=== PATIENT | female | born 1995 | race Caucasian/White ===

== ENCOUNTER 2020-03-15 09:00 | Outpatient (NON) | payer OTHER, SELFPAY ==
[2020-03-15 19:08] LABS: SARS-CoV-2 RNA PCR Negative
== END 2020-03-15 09:01 ==
PROVIDERS: Visit Provider Physician Assistant
DX: R05 Cough (principal); J02.9 Acute pharyngitis, unspecified; Z20.828 Contact with and (suspected) exposure to other viral communicable diseases
CPT/HCPCS: 87635; C9803; U0003

== ENCOUNTER 2020-05-07 06:53 | Outpatient (NON) | payer OTHER, SELFPAY ==
[2020-05-07 18:13] LABS: SARS-CoV-2 RNA PCR Negative
== END 2020-05-07 06:54 ==
PROVIDERS: PCP Family Medicine Adolescent Medicine; Visit Provider Family Medicine Adolescent Medicine
DX: R50.9 Fever, unspecified (principal); R53.83 Other fatigue; R19.7 Diarrhea, unspecified; Z20.828 Contact with and (suspected) exposure to other viral communicable diseases
CPT/HCPCS: 87635; C9803; U0003

== ENCOUNTER 2020-06-06 14:33 | Emergency (ER) | payer OTHER, SELFPAY ==
--- NOTE | 2020-06-06 14:39 | ED.GENADULT ---
HPI - General Adult General Chief complaint: Skin/Abscess/Foreign Body Stated complaint: possible insect bite Time Seen by Provider: 06/06/20 14:39 Source: patient Mode of arrival: ambulatory Limitations: no limitations History of Present Illness HPI narrative: 24-year-old female patient presents to the [facility] with complaints of an insect bite to left buttocks for the past 3 days. Denies any fevers, body aches or chills. Denies any nausea, vomiting or diarrhea. Patient states she has been a little bit of antibiotic ointment on it but denies taking anything for pain. Patient denies any or breast-feeding at this time. Related Data Allergies Allergy/AdvReac Type Severity Reaction Status Date / Time No Known Allergies Allergy Verified 06/06/20 14:51 Review of Systems Review of Systems: Narrative: CONSTITUTIONAL: Denies fever, chills, or sweats. EYES: Denies visual changes, redness, or discharge. ENT: Denies rhinorrhea, congestion, sore throat, or otalgia. CARDIOVASCULAR: Denies chest pain, palpitations, or edema. RESPIRATORY: Denies cough or dyspnea. GASTROINTESTINAL: Denies abdominal pain, nausea, vomiting, or diarrhea. GENITOURINARY: Denies dysuria or hematuria. SKIN: Denies rash or itching. Positive insect bite to left buttocks x3 days MUSCULOSKELETAL: Denies back pain, joint pain, or myalgia. NEUROLOGIC: Denies headache, numbness, or weakness. PSYCHIATRIC: Denies anxiety or depression. PMFSH Social History Social History Gender identity (if verbalized by the patient): Female Comments At the time of my signature I agree with nursing past medical history, surgical, social, and family history. There is no relevant family history pertinent to the presenting complaint. Exam Narrative: Exam Narrative: GENERAL: Well-appearing, well-nourished, and in no acute distress. HEAD: Normocephalic, atraumatic. EYES: PERRLA and EOMI. ENT: Nares clear, no rhinorrhea or epistaxis. Mucous membranes moist. NECK: Supple. No lymphadenopathy CHEST: Clear to auscultation. No respiratory distress. HEART: Regular rate and rhythm. No murmur heard. Normal peripheral pulses. ABDOMEN: Soft, nontender, nondistended, normal active bowel sounds. EXTREMITIES: Normal range of motion. No edema. SKIN: Warm, dry, no rash. Patient has approximately 1 cm x 1 cm round wound that is slightly raised noted to the middle of the left buttocks. There is a punctate brunilda in the middle with some scabbing over the punctate brunilda at this time. No active drainage. Slight tenderness but no warmth present. NEURO: No focal deficits. Alert and oriented x3. Course Vital Signs Vital signs: Vital Signs Temperature 37.3 C 06/06/20 14:44 Pulse Rate 100 06/06/20 14:44 Respiratory Rate 18 06/06/20 14:44 Blood Pressure 139/71 06/06/20 14:44 Pulse Oximetry 100 06/06/20 14:44 Temperature 37.3 C 06/06/20 14:44 Pulse Rate 100 06/06/20 14:44 Respiratory Rate 18 06/06/20 14:44 Blood Pressure 139/71 06/06/20 14:44 Pulse Oximetry 100 06/06/20 14:44 Vital signs reviewed. The patient has been informed that they may have pre-hypertension or Hypertension based on a BP reading in the department. I recommend that the patient call the primary care provider listed on their discharge instructions or a physician of their choice this week to arrange follow up for further evaluation of possible pre-hypertension or Hypertension Medical Decision Making Differential Diagnosis Differential Diagnosis: Differential diagnosis: Abscess, cellulitis, hidradenitis, laceration, puncture wound. Discussed with patient that the wound is small enough that I think we can treat this with topical antibiotic I do not think that she needs an oral antibiotic especially since she is not running any fevers or having any systematic symptoms. Discussed with patient I would encourage her to clean the area and put t
[2020-06-06 14:44] VITALS: BP 139/71; PULSE 100; RESP 18; TEMP 37.3; O2SAT 100
== END 2020-06-06 15:00 | disposition home or self-care (01) ==
PROVIDERS: Emergency Provider Nurse Practitioner Family; PCP Family Medicine Adolescent Medicine
DX: S30.860A Insect bite (nonvenomous) of lower back and pelvis, initial encounter (principal); W57.XXXA Bitten or stung by nonvenomous insect and other nonvenomous arthropods, initial encounter
CPT/HCPCS: 99213; G0463

== ENCOUNTER 2021-07-05 09:20 | Emergency (ER) | payer OTHER, SELFPAY ==
[2021-07-05 09:26] VITALS: BP 118/81; PULSE 79; RESP 16; TEMP 37.2; O2SAT 99
--- NOTE | 2021-07-05 09:34 | ED.URI ---
HPI - URI/Sore Throat General Chief Complaint: Upper Respiratory Infection Stated Complaint: sore throat Time Seen by Provider: 07/05/21 09:30 Source: patient and RN notes reviewed Mode of arrival: ambulatory Limitations: no limitations History of Present Illness HPI Narrative: Ariadna is a 25-year-old female who ambulated into the [facility] today. Patient complains of sore throat headache and fatigue starting on 07/03/2021. Patient states she has a right lymph node in her neck that started swelling on Saturday. Patient has taken Tylenol for sore throat. Patient denies any congestion or ear pain. MD elicited complaint: sore throat Related Data Allergies Allergy/AdvReac Type Severity Reaction Status Date / Time No Known Allergies Allergy Verified 06/06/20 14:51 Review of Systems Review of Systems: CONSTITUTIONAL: Denies body aches, fever, chills, or sweats. EYES: Denies visual changes, redness, or discharge. ENT: Denies rhinorrhea, congestion,+ sore throat, denies otalgia. CARDIOVASCULAR: Denies chest pain, palpitations, or edema. RESPIRATORY: Denies cough or dyspnea. GASTROINTESTINAL: Denies abdominal pain, nausea, vomiting, or diarrhea. GENITOURINARY: Denies dysuria or hematuria. SKIN: Denies rash, itching, or wounds. MUSCULOSKELETAL: Denies back pain, joint pain, or myalgia. NEUROLOGIC:+ headache,denies numbness, tingling, or weakness. PSYCH: Denies depression or anxiety. All systems reviewed & are unremarkable except as noted in HPI and below PMFSH Social History Social History Gender identity (if verbalized by the patient): Female Comments At time of signature, I have reviewed and agree with nursing past medical, surgical, social and family history unless otherwise noted. Please see nursing chart for further information. There is no relevant family history pertinent to the presenting complaint Exam Narrative: GENERAL: Well-appearing, well-nourished, and in no acute distress. HEAD: Normocephalic, atraumatic. EYES: EOMI. No redness or drainage. Conjunctivae normal. ENT: Mucous membranes pink and moist. Nares clear. No rhinorrhea. TMs dull bilaterally;no bulging noted. Posterior pharynx erythemic without exudate, moderate edema noted Uvula midline. NECK: Normal AROM. Supple. Bilateral anterior cervical lymphadenopathy. CHEST: No respiratory distress. Clear to auscultation. MUSCULOSKELETAL: No bony tenderness. EXTREMITIES: Normal range of motion. No edema. SKIN: Warm, dry, no rash. Capillary refill normal. Normal skin turgor. NEURO: No focal deficits. Alert and oriented x3. Gait steady. PSYCH: Normal affect. No signs of depression or anxiety. Course Vital Signs Vital signs: Vital Signs Temperature 37.2 C 07/05/21 09:26 Pulse Rate 79 07/05/21 09:26 Respiratory Rate 16 07/05/21 09:26 Blood Pressure 118/81 07/05/21 09:26 Pulse Oximetry 99 07/05/21 09:26 Temperature 37.2 C 07/05/21 09:26 Pulse Rate 79 07/05/21 09:26 Respiratory Rate 16 07/05/21 09:26 Blood Pressure 118/81 07/05/21 09:26 Pulse Oximetry 99 07/05/21 09:26 Reviewed MDM - URI/Sore Throat Differential Diagnosis Differential diagnosis: Likely upper respiratory infection, otitis media, viral infection and pharyngitis Medical Records Attestation: I reviewed the patient's medical records. Lab Data Attestation: I reviewed the patient's lab results. Critical Care Time Critical Care Time Critical Care Time: No Discharge Plan Discharge Clinical Impression: Pharyngitis Qualifiers: Pharyngitis/tonsillitis etiology: unspecified etiology Qualified Code(s): J02.9 - Acute pharyngitis, unspecified Patient Disposition: Home, Self-Care Condition: Stable Instructions: Antibiotic Form, Pharyngitis (ED) Additional Instructions: Your rapid strep swab was negative today at [facility]. You will be notified in a few days if the culture
== END 2021-07-05 09:59 | disposition home or self-care (01) ==
PROVIDERS: Emergency Provider Nurse Practitioner Family; PCP Family Medicine Adolescent Medicine
DX: J02.9 Acute pharyngitis, unspecified (principal)
CPT/HCPCS: 87081; 87880; 99213; G0463

== ENCOUNTER 2021-11-19 10:51 | Emergency (ER) | payer OTHER, SELFPAY ==
--- NOTE | ~2021-11-19 | CT_ITS ---
EXAMINATION: CT abdomen pelvis w con DATE: 11/19/2021 12:09 INDICATION: Lower abdominal pain for 2 days TECHNIQUE: Computed tomography (CT) of the abdomen and pelvis was performed with 100 cc Omnipaque 350 intravenous contrast. The dose-length product was 187.11 mGy-cm. Automated exposure control and iter ative reconstruction technique were employed. COMPARISON: None. FINDINGS: Lung bases are unremarkable. Heart size normal. No significant vascular abnormality. No lym phadenopathy. There is a 6.4 cm right ovarian cyst. There is a 1.7 cm left ovarian cyst. There is mil d endometrial prominence, likely related to the patient's menstrual cycle. 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 There are small accessory splenules in the left upper abdomen. Fatty infiltration of the liver. The p ancreas, adrenal glands are unremarkable. No hydronephrosis. No significant free fluid. No acute osse ous abnormality. IMPRESSION: 1. Bilateral ovarian cysts, largest in the right ovary measuring 6.4 cm. 2: Horseshoe kidney. Reviewed, dictated and finalized at location A.
[2021-11-19 10:53] VITALS: BP 131/77; PULSE 98; RESP 18; TEMP 37.2; O2SAT 99
--- NOTE | 2021-11-19 10:58 | PC.NURSE ---
pt ambulated to room, given gown to change in to and urine specimen collection cup. Protocol initiated.
[2021-11-19 11:20] LABS: Basophils Percent Auto 0.4 % (0.2-1.2); Eosinophils Percent Auto 0.1 % (0-4.4); Hematocrit 43.8 % (37.0-47.0); Hemoglobin 14.7 g/dL (12.0-15.0); Immature Granulocyte Absolute 0.02 K/mm3 (0.00-0.031); Immature Granulocyte Percent A 0.3 % (0-0.5); Lymphocytes Absolute Auto 1.05 K/mm3 (0.9-3.2); Lymphocytes Percent Auto 13.9 % (18.3-44.2); Mean Corpuscular HGB Conc 33.6 g/dl (32-36); Mean Corpuscular Hemoglobin 32.3 pg (26-34); Mean Corpuscular Volume 96.3 fl (80-100); Mean Platelet Volume 10.1 fl (7.4-10.4); Monocytes Absolute Auto 0.6 K/mm3 (0.1-0.6); Monocytes Percent Auto 7.9 % (2.6-8.5); Neutrophils Absolute Auto 5.9 K/mm3 (1.3-6.7); Neutrophils Percent Auto 77.4 % (45.5-73.1); Platelet Count Result 221 k/mm3 (150-375); Red Blood Count 4.55 M/mm3 (4.2-5.4); Red Cell Distribution Width 11.8 % (11.5-14.5); White Blood Count 7.6 K/mm3 (4.5-10.0)
[2021-11-19 11:25] LABS: Add Urine Microscopic? YES; Appearance Urine Cloudy (Clear); Bacteria Urine Trace /hpf; Bilirubin Urine Negative (Negative); Blood Urine 1+ (Negative); Color Urine Yellow (Yellow); Glucose Urine UA Negative (Negative); Ketones Urine Trace mg/dL (Negative); Leukocyte Esterase Ur Negative LEU/UL (Negative); Mucus Urine Rare /lpf; Nitrate Urine Negative (Negative); Protein Urine Negative (Negative); Specific Grav Ur 1.021 (1.001-1.035); Squamous Epithelial Cell Urine Many /hpf (Few); Urobilinogen Urine Negative mg/dL (<2.0)
[2021-11-19 11:29] LABS: Alanine Aminotransferase 14 U/L (4-35); Albumin Level 4.4 g/dL (3.5-5.1); Alkaline Phosphatase 62 U/L (38-126); Anion Gap 9 mmol/L (8-16); Aspartate Amino Transferase 27 U/L (14-36); Bilirubin,Total 0.4 mg/dL (0.2-1.3); Blood Urea Nitrogen 10 mg/dL (7-17); Calcium 8.4 mg/dL (8.4-10.2); Carbon Dioxide 24 mmol/L (22-30); Chloride 103 mmol/L (98-107); Estimated Glomerular Filt Rate > 60; Glucose 107 mg/dL (65-110); Lipase 33 U/L (23-300); Potassium 4.1 mmol/L (3.4-5.0); Sodium 136 mmol/L (137-145)
--- NOTE | 2021-11-19 11:32 | ED.ABDPAIN ---
HPI - Abdominal Pain General Chief Complaint: Abdominal Pain Stated Complaint: flank pain, fever, chills Time Seen by Provider: 11/19/21 11:23 Source: patient Mode of arrival: ambulatory Limitations: no limitations History of Present Illness HPI narrative: Patient is 26 years old white female presented to the ED with left flank pain radiating to left lower quadrant started 3 days ago. Associated with chills, cold, hot feeling. Patient denies any nausea vomiting diarrhea, also denied any vaginal bleeding or discharge, patient does not take medicine at home, last menstrual cycle 3 weeks ago, patient smokes marijuana, does not drink or smoke cigarettes. Related Data Allergies Allergy/AdvReac Type Severity Reaction Status Date / Time No Known Allergies Allergy Verified 06/06/20 14:51 [facility] Social History Social History Gender identity (if verbalized by the patient): Female Course Course Emergency Course: Patient presents with left flank and left upper quadrant pain, Work-up did not show any significant findings to explain patient condition. CAT scan showed ovarian cyst bilaterally the largest one on the right side. Musculoskeletal pain is a possibility. Patient will be discharged home to follow-up with her family physician and to use anti-inflammatories and Tylenol as needed. Vital Signs Vital signs: Vital Signs Temperature 37.2 C 11/19/21 10:53 Pulse Rate 98 11/19/21 10:53 Respiratory Rate 18 11/19/21 10:53 Blood Pressure 131/77 11/19/21 10:53 Pulse Oximetry 99 11/19/21 10:53 Temperature 37.2 C 11/19/21 10:53 Pulse Rate 98 11/19/21 10:53 Respiratory Rate 18 11/19/21 10:53 Blood Pressure 131/77 11/19/21 10:53 Pulse Oximetry 99 11/19/21 10:53 MDM - Abdominal Pain Lab Data Result diagrams: 11/19/21 11:13 11/19/21 11:13 Labs: Lab Results 11/19/21 11/19/21 11/19/21 Range/Units 11:13 11:13 11:13 WBC 7.6 (4.5-10.0) K/mm3 RBC 4.55 (4.2-5.4) M/mm3 Hgb 14.7 (12.0-15.0) g/dL Hct 43.8 (37.0-47.0) % MCV 96.3 (80-100) fl MCH 32.3 (26-34) pg MCHC 33.6 (32-36) g/dl RDW 11.8 (11.5-14.5) % Plt Count 221 (150-375) k/mm3 MPV 10.1 (7.4-10.4) fl Immature Gran % (Auto) 0.3 (0-0.5) % Neut % (Auto) 77.4 H (45.5-73.1) % Lymph % (Auto) 13.9 L (18.3-44.2) % [place] % (Auto) 7.9 (2.6-8.5) % Eos % (Auto) 0.1 (0-4.4) % Baso % (Auto) 0.4 (0.2-1.2) % Lymph # (Auto) 1.05 (0.9-3.2) K/mm3 [place] # (Auto) 0.6 (0.1-0.6) K/mm3 Eos # (Auto) 0.0 (0-0.3) K/mm3 Baso # (Auto) 0.0 (0.0-0.1) K/mm3 Abs Immat Gran (auto) 0.02 (0.00-0.031) K/mm3 Absolute Neuts (auto) 5.9 (1.3-6.7) K/mm3 Absolute Nucleated RBC 0.0 (0.0-0.012) K/mm3 Nucleated RBC % 0.0 (0.0-0.2) % Sodium 136 L (137-145) mmol/L Potassium 4.1 (3.4-5.0) mmol/L Chloride 103 (98-107) mmol/L Carbon Dioxide 24 (22-30) mmol/L Anion Gap 9 (8-16) mmol/L BUN 10 (7-17) mg/dL Creatinine 0.70 (0.7-1.0) mg/dL Estim Creat Clear Calc Not Reportable Estimated GFR > 60 (59 - ) Glucose 107 (65-110) mg/dL Calcium 8.4 (8.4-10.2) mg/dL Total Bilirubin 0.4 (0.2-1.3) mg/dL AST 27 (14-36) U/L ALT 14 (4-35) U/L Alkaline Phosphatase 62 (38-126) U/L Total Protein 8.0 (6.3-8.2) g/dL Albumin 4.4 (3.5-5.1) g/dL Lipase 33 (23-300) U/L Urine Color Yellow (Yellow) Urine Appearance Cloudy H (Clear) Urine pH 5.0 (5.0-9.0) Ur Specific [place] 1.021 (1.001-1.035) Urine Protein Negative (Negative) mg/dL Urine Glucose (UA) Negative (Negative) mg/dL Urine Ketones Trace (Negative) mg/dL Ur Blood (Man) 1+ H (Negative) Urine Nitrate Negative (Negative) Urine Bilirubin Negative (Negative) Urine Urobilinogen Negative (<2.0) mg/dL Leukocyte Esterase R
[2021-11-19] MEDS: SODIUM CHLORIDE 0.9% IV 1,000 ML 999 ML IV CONT (11:42)
== END 2021-11-19 13:50 | disposition home or self-care (01) ==
PROVIDERS: Emergency Provider Emergency Medicine; PCP Family Medicine Adolescent Medicine
DX: R10.32 Left lower quadrant pain (principal); Q63.1 Lobulated, fused and horseshoe kidney; N83.202 Unspecified ovarian cyst, left side; N83.201 Unspecified ovarian cyst, right side
CPT/HCPCS: 36415; 74177; 80053; 81001; 81025; 83690; 85025; 96360; 99284; J7030; Q9967

== ENCOUNTER 2022-10-06 10:46 | Emergency (ER) | payer OTHER, SELFPAY ==
--- NOTE | 2022-10-06 10:59 | ED.NAVMDI ---
HPI - Nausea/Vomiting/Diarrhea General Chief complaint: Nausea/Vomiting/Diarrhea Stated complaint: Vomiting with Time Seen by Provider: 10/06/22 10:48 History of Present Illness HPI Narrative: 27-year-old G1, P0 female who is currently about 5 weeks by LMP here for evaluation of nausea, vomiting for the past 3 days. Patient states that she has been unable to tolerate any p.o. denies sick contacts, fevers or chills, diarrhea or constipation, new or suspicious foods. No vaginal bleeding, dysuria, urgency or frequency, or abdominal pain. Patient decided to come in today because she started to have some pain in her left flank and thought she might have a kidney infection. Has not attempted any medicine for this pain. Related Data Allergies Allergy/AdvReac Type Severity Reaction Status Date / Time No Known Allergies Allergy Verified 11/21/21 09:26 Review of Systems Review of Systems: Gen: Denies fevers or chills Eyes: Denies eye pain or visual change ENT: Denies congestion Respiratory: Denies shortness of breath or cough CV: Denies chest pain or palpitations GI: Reports nausea and vomiting. denies burning, urgency, frequency or hematuria Musculoskeletal: Reports left flank pain. Denies back pain or muscle pain Neuro: Denies numbness, tingling, weakness or focal weakness Skin: Denies rash Except as documented, all other systems reviewed and negative PMFSH Family History Family History (Updated 11/21/21 @ 09:29 by Gianluca Brandon MA) Grandparent Depression Social History Social History (Updated 11/21/21 @ 09:30 by Gianluca Brandon MA) Smoking status: Current every day smoker Tobacco type: cigarettes Second hand tobacco smoke exposure: Yes Alcohol intake: never Substance use: never Substance use type: does not use Living arrangements: with family Occupation/Education: occupation Gender identity (if verbalized by the patient): Female Sexual Orientation (if Verbalized by the Patient): Straight or Heterosexual Spiritual care concerns: No Agree to blood products: Yes Exam Narrative: APPEARANCE: Well appearing, no pain in distress, well-nourished. Head: Normocephalic and atraumatic. EYES: PERRLA/EOMI, conjunctivae clear NOSE: No nasal drainage EARS: External ear normal in appearance THROAT: Oropharynx is clear. Mucous membranes are moist. NECK: Supple. No adenopathy, no masses. RESPIRATORY: Airway patent, respirations nonlabored. Clear to auscultation bilaterally, no rales, rhonchi, wheezing. CARDIOVASCULAR: Regular rate and rhythm without murmurs, rubs, or gallops. ABDOMINAL: Normoactive bowel sounds. Soft, nontender, nondistended. No rebound tenderness or guarding. MUSCULOSKELETAL: No CVAT. Extremities are warm and well-perfused. Moves all extremities well. No edema. NEURO: Normal speech. No focal neurologic deficits. SKIN: Skin is warm and dry. No rashes. PSYCHIATRIC: Normal affect/mood. Course Vital Signs Vital signs: Vital Signs Temperature 98.2 F 10/06/22 11:11 Pulse Rate 106 H 10/06/22 11:11 Respiratory Rate 16 10/06/22 11:11 Blood Pressure 114/81 10/06/22 11:11 Pulse Oximetry 100 10/06/22 11:11 Oxygen Delivery Room Air 10/06/22 11:11 Temperature 98.2 F 10/06/22 11:11 Pulse Rate 80 10/06/22 12:26 Respiratory Rate 16 10/06/22 12:26 Blood Pressure 124/68 10/06/22 12:26 Pulse Oximetry 99 10/06/22 12:26 Oxygen Delivery Room Air 10/06/22 11:11 MDM - Nausea/Vomiting/Diarrhea MDM Narrative Medical decision making narrative: 27-year-old female who is currently about 5 weeks here for evaluation of nausea and vomiting over the past several days, unable to tolerate any p.o, now having some pain in her left flank. Patient is nontoxic in appearance and has normal vital signs. No urinary symptoms, fever or CVA tenderness to suggest ascending infection. She was given fluids, Reglan and Pepcid with improvement
[2022-10-06 11:11] VITALS: BP 114/81; PULSE 106; RESP 16; TEMP 36.8; O2SAT 100
[2022-10-06 11:15] LABS: Appearance Urine Cloudy (Clear); Bilirubin Urine 1+ (Negative); Blood Urine Negative (Negative); Color Urine Yellow (Yellow); Glucose Urine UA Negative (Negative); Ketones Urine 3+ mg/dL (Negative); Leukocyte Esterase Ur Negative LEU/UL (Negative); Nitrate Urine Negative (Negative); Protein Urine 1+ mg/dL (Negative); Urobilinogen Urine 0.2 mg/dL (<2.0); pH Urine 8.5 (5.0-9.0)
[2022-10-06 11:22] LABS: Amorphous Sediment Urine Moderate; Mucus Urine Heavy /lpf; Squamous Epithelial Cell Urine Many /hpf (Few); WBC Urine 0-3 /hpf
[2022-10-06 11:24] LABS: Add Urine Microscopic? YES
[2022-10-06 11:28] LABS: Basophils Percent Auto 0.4 % (0.2-1.2); Eosinophils Percent Auto 0.2 % (0-4.4); Hematocrit 41.5 % (37.0-47.0); Hemoglobin 14.4 g/dL (12.0-15.0); Immature Granulocyte Absolute 0.02 K/mm3 (0.00-0.031); Immature Granulocyte Percent A 0.2 % (0-0.5); Lymphocytes Percent Auto 17.6 % (18.3-44.2); Mean Corpuscular HGB Conc 34.7 g/dl (32-36); Mean Corpuscular Hemoglobin 31.9 pg (26-34); Mean Platelet Volume 10.2 fl (7.4-10.4); Monocytes Absolute Auto 0.5 K/mm3 (0.1-0.6); Monocytes Percent Auto 5.6 % (2.6-8.5); Neutrophils Absolute Auto 6.5 K/mm3 (1.3-6.7); Platelet Count Result 261 k/mm3 (150-375); Red Blood Count 4.51 M/mm3 (4.2-5.4); Red Cell Distribution Width 11.9 % (11.5-14.5); White Blood Count 8.5 K/mm3 (4.5-10.0)
[2022-10-06 11:37] LABS: Alanine Aminotransferase 29 U/L (6-35); Albumin Level 4.9 g/dL (3.5-5.1); Alkaline Phosphatase 56 U/L (38-126); Anion Gap 6 mmol/L (8-16); Aspartate Amino Transferase 30 U/L (14-36); Bilirubin,Total 0.8 mg/dL (0.2-1.3); Blood Urea Nitrogen 9 mg/dL (7-17); Calcium 9.3 mg/dL (8.4-10.2); Carbon Dioxide 26 mmol/L (22-30); Chloride 101 mmol/L (98-107); Estimated Glomerular Filt Rate > 60; Glucose 122 mg/dL (65-110); Lipase 51 U/L (23-300); Potassium 3.7 mmol/L (3.4-5.0); Sodium 133 mmol/L (137-145)
[2022-10-06] MEDS: LACTATED RINGERS 1,000 ML 999 ML IV CONT (11:42)
[2022-10-06] MEDS: METOCLOPRAMIDE HCL INJ 10 MG/2 ML VIAL IV PUSH (11:43)
[2022-10-06] MEDS: FAMOTIDINE 20 MG/2 ML VIAL IV PUSH (11:43)
[2022-10-06 12:26] VITALS: BP 124/68; PULSE 80; RESP 16; O2SAT 99
== END 2022-10-06 12:27 | disposition home or self-care (01) ==
PROVIDERS: Emergency Provider Physician Assistant; PCP Family Medicine Adolescent Medicine
DX: O26.891 Other specified pregnancy related conditions, first trimester (principal); R11.2 Nausea with vomiting, unspecified; F17.210 Nicotine dependence, cigarettes, uncomplicated; Z3A.01 Less than 8 weeks gestation of pregnancy
CPT/HCPCS: 36415; 80053; 81001; 83690; 84702; 85025; 96361; 96374; 96375; 99284; J2765; J7120

== ENCOUNTER 2022-10-26 14:41 | Outpatient (CLI) | payer OTHER, SELFPAY ==
--- NOTE | ~2022-10-26 | US_ITS ---
EXAMINATION: US OB <= 14 weeks fetus DATE: 10/26/2022 14:59 INDICATION: . Inconclusive viability. TECHNIQUE: Real-time transabdominal obstetric ultrasound. FINDINGS: No prior studies for comparison. The uterus measures 10.9 x 5.7 x 8 cm. There is an intrauterine gestational sac, with pole iden tified. The crown rump length measures 2.36 cm, which correlates with a estimated gestational age of 9 weeks 0 days. heart tones are identified measuring 182 bpm. The right ovary is surgically absent. The left ovary is unremarkable measuring 3.1 x 2.8 x 3 cm. IMPRESSION: 1. SL IUP with an EGA of 9 weeks, 0 days (EDC by current ultrasound of 05/31/2023). Reviewed, dictated and finalized at location B. CHARGER IMPRESSION: 1. SL IUP with an EGA of 9 weeks, 0 days (EDC by current ultrasound of 3).
== END 2022-10-26 14:42 ==
PROVIDERS: PCP Advanced Practice Midwife; Visit Provider Advanced Practice Midwife
DX: O36.80X0 Pregnancy with inconclusive fetal viability, not applicable or unspecified (principal); Z3A.09 9 weeks gestation of pregnancy
CPT/HCPCS: 76801

== ENCOUNTER 2022-12-31 13:47 | Outpatient (CLI) | payer OTHER, SELFPAY ==
--- NOTE | ~2022-12-31 | US_ITS ---
EXAMINATION: US OB /maternal detail DATE: 12/31/2022 14:17 INDICATION: anatomic survey. TECHNIQUE: Real-time ultrasound of the pelvis was performed. COMPARISON: Ultrasound 10/26/2022 FINDINGS: There is a single living fetus in breech presentation. The placenta is posterior, 4.9 cm from the ce rvix. The cervical length is 3.2 cm on transabdominal images, which is normal. heart rate is 14 8 beats per minute (bpm). The amniotic fluid volume is subjectively normal. The following biometric data were obtained: Biparietal diameter (BPD): 4.5 cm; head circumference (HC): 16.2 cm; abdominal circumference (AC): 13 .1 cm; femur length (FL): 2.9 cm. These measurements are concordant. Estimated weight is 256 g +/- 38 g, which correlates with the 67th percentile when 05/31/23 is u sed as estimated date of delivery. As single measurements, these parameters are each equal to the following estimated gestational ages: BPD: 19 weeks 4 days. HC: 19 weeks 0 days. AC: 18 weeks 4 days. FL: 18 weeks 6 days. estimated gestational age based solely on measurements from this exam is 19 weeks 0 days +/- 1 weeks 2 days. The cerebral ventricles, cerebellum, cisterna magna, nuchal fold, lip, and visualized portions of the spine are normal. The heart is normal. The diaphragm, stomach, kidneys, and bladder are normal. Ther e are two umbilical arteries to yield a 3-vessel cord. The cord insertion is normal. IMPRESSION: 1. Single living fetus in breech presentation. 2. Estimated weight is 256 g +/- 38 g, which correlates with the 67th percentile when 05/31/23 is used as estimated date of delivery. 3. Normal anatomic survey. Reviewed, dictated and finalized at location A. IMPRESSION: 1. Single living fetus in breech presentation. 2. Estimated weight is 256 g +/- 38 g, which correlates with the 67th pe rcentile when 05/31/23 is used as estimated date of delivery. 3. Normal anatomic survey.
== END 2022-12-31 13:48 ==
PROVIDERS: PCP Advanced Practice Midwife; Visit Provider Advanced Practice Midwife
DX: Z36.9 Encounter for antenatal screening, unspecified (principal)
CPT/HCPCS: 76805

== ENCOUNTER 2023-04-10 12:46 | Outpatient (CLI) | payer OTHER, SELFPAY ==
--- NOTE | ~2023-04-10 | US_ITS ---
EXAMINATION: US OB follow up DATE: 04/10/2023 13:10 INDICATION: Estimated size greater than expected for estimated gestational age. TECHNIQUE: Real-time ultrasound of the pelvis was performed. The interpreting radiologist was not pre sent for the study. COMPARISON: 12/31/2022 FINDINGS: There is a single living fetus in vertex presentation. The placenta is posterior and not low-lying. The cervical length measures approximately 2.6 cm however evaluation is limited by transabdominal danis ging and shadowing in the region of the internal cervical loss resulting from the skull. heart rate is 148 beats per minute (bpm). The amniotic fluid index is 12.9 cm, which is normal (5th% -95%: 8.6-24.5 cm at 32 weeks estimated gestational age). The following biometric data were obtained: BPD: 8.2 cm -> 32 weeks 5 days Head circumference: 19.8 cm -> 33 weeks 0 days Abdominal circumference: 28.4 cm -> 32 weeks 3 days Femur length: 6.4 cm -> 32 weeks 6 days These measurements are concordant. Head circumference to abdominal circumference ratio: 1.05 (normal range 0.96-1.12). Estimated weight: 2020 g (+/-) 303 g or 4 lbs. 7 oz. (+/-) 11 oz. IMPRESSION: 1. Single living fetus in vertex presentation with heart rate of 148 bpm. 2. Normal amniotic fluid index of 12.9 cm. 3. Estimated weight is 38th percentile by Hadlock criteria when 05/31/2023 is used as the estima petrona date of delivery ([place]). Please correlate with clinical information or earlier ultrasounds for mos t accurate [place]. 4. Cervical length measured at 2.6 cm which is below normal however assessment is limited by poor vis ualization of the cervix particularly in the region of the internal cervical os due to transabdominal imaging and shadowing from the skull. Could consider repeat imaging with transvaginal probe as clinically indicated. Reviewed, dictated and finalized at location B. IMPRESSION: 1. Single living fetus in vertex presentation with heart rate of 148 bpm. 2. Normal amniotic fluid index of 12.9 cm. 3. Estimated weight is 38th percentile by Hadlock criteria when 05/31/2023 is used as the estimated date of delivery ([place]). Please correlate with clinica l information or earlier ultrasounds for most accurate [place]. 4. Cervical length measured at 2.6 cm which is below normal however assessment is limited by poor visualization of the cervix particularly in the region of th e internal cervical os due to transabdominal imaging and shadowing from the fet al skull. Could consider repeat imaging with transvaginal probe as clinically i ndicated.
== END 2023-04-10 12:47 ==
LOC: MICIMG 12:47
PROVIDERS: PCP Advanced Practice Midwife; Visit Provider Advanced Practice Midwife
DX: O36.63X0 Maternal care for excessive fetal growth, third trimester, not applicable or unspecified (principal); Z3A.00 Weeks of gestation of pregnancy not specified
CPT/HCPCS: 76816

== ENCOUNTER 2023-05-14 12:46 | Outpatient (CLI) | payer OTHER, SELFPAY ==
--- NOTE | ~2023-05-14 | US_ITS ---
EXAMINATION: US OB follow up DATE: 05/14/2023 13:12 INDICATION: Size greater than dates. TECHNIQUE: Real-time transabdominal obstetric ultrasound. FINDINGS: Comparison to multiple prior studies sequentially, with oldest reviewed study dated 023. There is a single living fetus in vertex presentation. The placenta is posterior/fundal without plac enta previa. Cervical length is 2.4 cm. cardiac activity and movement is noted with a heart rate of 158 beats per minute. T he amniotic fluid volume is normal. SY measures 14.8 cm. The following biometric data were obtained: BPD: 89mm corresponds to gestational age 35 weeks 6 days. Head circumference: 322mm corresponds to gestational age 36 weeks 2 days. Abdominal circumference: 328mm corresponds to gestational age 36 weeks 5 days. Femur length: 72mm corresponds to gestational age 36 weeks 5 days. Estimated weight: 2979grams +/- 447grams 33.6%.] IMPRESSION: 1. Single living intrauterine in vertex presentation with an estimated gestational age of 37 weeks 4 days by inititial ultrasound. Appropriate interval growth. 2. Normal placenta. Reviewed, dictated and finalized at location L. IMPRESSION: 1. Single living intrauterine in vertex presentation with an estimat ed gestational age of 37 weeks 4 days by inititial ultrasound. Appropriate int erval growth. 2. Normal placenta.
== END 2023-05-14 12:47 ==
LOC: MICIMG 12:48
PROVIDERS: PCP Advanced Practice Midwife; Visit Provider Advanced Practice Midwife
DX: O36.63X0 Maternal care for excessive fetal growth, third trimester, not applicable or unspecified (principal); Z3A.37 37 weeks gestation of pregnancy
CPT/HCPCS: 76816

== ENCOUNTER 2023-05-30 01:00 | Inpatient (IN) | payer OTHER, SELFPAY ==
[2023-05-30] VITALS (211 sets, daily range): BP systolic 78–156; BP diastolic 36–117; PULSE 77–179; RESP 18; TEMP 36.4–38.1; O2SAT 83–100; BMI 36.0
--- NOTE | 2023-05-30 02:03 | LDADM ---
This patient, Ariadna Harrington, was admitted to Labor/Delivery/Recovery 107 on 05/30/23 at 01:00. Plans for labor, pain management and were discussed with patient. Patient/family oriented to hospital policies and general routines including ID bracelet, bed and alarms, visiting hours, pain management, procedures, bathroom and other care routines, personal items, smoking policy, room service/diet and guest tray routines, infant security routines, and visiting hours. Patient/Family are encouraged to report perceived risks to care and to ask questions if they do not understand what they are told or what they should do. See [facility] for further documentation.
[2023-05-30 02:15] LABS: Basophils Percent Auto 0.2 % (0.2-1.2); Eosinophils Absolute Auto 0.1 K/mm3 (0-0.3); Eosinophils Percent Auto 0.9 % (0-4.4); Hematocrit 32.7 % (37.0-47.0); Hemoglobin 10.9 g/dL (12.0-15.0); Immature Granulocyte Absolute 0.07 K/mm3 (0.00-0.031); Immature Granulocyte Percent A 0.8 % (0-0.5); Lymphocytes Absolute Auto 2.12 K/mm3 (0.9-3.2); Lymphocytes Percent Auto 24.5 % (18.3-44.2); Mean Corpuscular HGB Conc 33.3 g/dl (32-36); Mean Corpuscular Hemoglobin 31.2 pg (26-34); Mean Corpuscular Volume 93.7 fl (80-100); Monocytes Absolute Auto 0.5 K/mm3 (0.1-0.6); Monocytes Percent Auto 5.8 % (2.6-8.5); Neutrophils Absolute Auto 5.9 K/mm3 (1.3-6.7); Neutrophils Percent Auto 67.8 % (45.5-73.1); Platelet Count Result 164 k/mm3 (150-375); Red Blood Count 3.49 M/mm3 (4.2-5.4); Red Cell Distribution Width 14.2 % (11.5-14.5); White Blood Count 8.7 K/mm3 (4.5-10.0)
[2023-05-30] MEDS: LACTATED RINGERS 1,000 ML 125 ML IV CONT ×2 (04:36→13:16)
[2023-05-30] MEDS: OXYTOCIN 30 UNITS/NS 500 ML 30 UNITS/500 ML BAG IV CONT (04:36)
--- NOTE | 2023-05-30 05:53 | WPDANESEPP ---
Anes - Eval Pre Procedure Procedure: Labor epidural Date/Time: 05/30/23 05:53 Pre Op Diagnosis: Leaking Patient Data Age: 27 Gender: F Height: 1.5 m Weight: 81 kg Last Vital Signs Pulse 96 05/30/23 05:31 BP 131/77 05/30/23 05:31 Allergies Allergy/AdvReac Type Severity Reaction Status Date / Time No Known Allergies Allergy Verified 11/21/21 09:26 Home Medications Medication Instructions Recorded Confirmed Type ergocalciferol (vitamin D2) 1,250 1,250 mcg PO WEEKLY 05/03/23 05/03/23 History mcg (50,000 unit) capsule (Vitamin D2) prenat.vits,demario,[id number] 1 tablet PO DAILY 05/03/23 05/03/23 History Laboratory Tests 05/30/23 01:58 WBC 8.7 K/mm3 (4.5-10.0) RBC 3.49 L M/mm3 (4.2-5.4) Hgb 10.9 L D g/dL (12.0-15.0) Hct 32.7 L % (37.0-47.0) MCV 93.7 fl (80-100) MCH 31.2 pg (26-34) MCHC 33.3 g/dl (32-36) RDW 14.2 % (11.5-14.5) Plt Count 164 k/mm3 (150-375) MPV 12.0 H fl (7.4-10.4) Immature Gran % (Auto) 0.8 H % (0-0.5) Neut % (Auto) 67.8 % (45.5-73.1) Lymph % (Auto) 24.5 % (18.3-44.2) [place] % (Auto) 5.8 % (2.6-8.5) Eos % (Auto) 0.9 % (0-4.4) Baso % (Auto) 0.2 % (0.2-1.2) Lymph # (Auto) 2.12 K/mm3 (0.9-3.2) [place] # (Auto) 0.5 K/mm3 (0.1-0.6) Eos # (Auto) 0.1 K/mm3 (0-0.3) Baso # (Auto) 0.0 K/mm3 (0.0-0.1) Abs Immat Gran (auto) 0.07 H K/mm3 (0.00-0.031) Absolute Neuts (auto) 5.9 K/mm3 (1.3-6.7) Absolute Nucleated RBC 0.0 K/mm3 (0.0-0.012) Nucleated RBC % 0.0 % (0.0-0.2) % Immature Plt Fraction 12.0 H % (0.9-11.2) RPR Pending Blood Type O Positive Antibody Screen Negative Patient hx anesthesia problems: none Family hx anesthesia problems: none Results Review: All pre-operative results and documents have been reviewed as part of the pre-operative evaluation. [facility] Past Medical History Medical History (Updated 05/30/23 @ 05:54 by Magy Salgado CRNA) Anxiety Family History Family History Grandparent Depression Social History Social History Smoking status: Never smoker Tobacco type: cigarettes Second hand tobacco smoke exposure: Yes Alcohol intake: never Substance use: former Substance use type: does not use Lack of Transportation: No Lack of Food: Never True Current Housing: I Have Housing Concerned About Future Housing: No Difficulty Paying Gas/Electric Bills: No Difficulty Paying for Meds: No Currently Unemployed: No Education: High School Diploma/GED Difficulty w/ Childcare or Family Care: No Living arrangements: with family Occupation/Education: occupation Gender identity (if verbalized by the patient): Female Sexual Orientation (if Verbalized by the Patient): Straight or Heterosexual Spiritual care concerns: No Agree to blood products: Yes Exam Day of Procedure 05/30/23 05:53 Patient weight: obese Heart: regular rate and rhythm Lungs: normal air movement Airway: Mallampati scale Neurological: alert and oriented
--- NOTE | 2023-05-30 08:15 | WPDOBADMIT ---
Obstetrics - Admit Note Admission Note: record reviewed. No pertinent additions to the history and/or any subsequent changes in the physical findings that are not consistent with the expected course of the were found. Additions to the history and/or subsequent changes in the physical findings follow. Patient admitted with spontaneous rupture of membranes with minimal contractions. Pitocin started and patient now receiving epidural. Last cervical check was 3 and per the RN she was 2cm. She plans to do a cervical check after the patient was comfortable with her epidural. heart tones were category 1.
--- NOTE | 2023-05-30 13:14 | WPDOBADMIT ---
Obstetrics - Admit Note Admission Note: record reviewed. No pertinent additions to the history and/or any subsequent changes in the physical findings that are not consistent with the expected course of the were found. Additions to the history and/or subsequent changes in the physical findings follow. Pt admitted to labor and delivery due to SROM at 0030 this am.
--- NOTE | 2023-05-30 13:14 | PM.OBPNLAB ---
Pain Control Date/time seen: 05/30/23 13:05 Pain control: tolerating well and epidural Pelvic Exam Dilation (cm): 10 Effacement (%): 100 station: +1 Amniotic membrane status: Ruptured Contractions Monitor mode: External Contraction frequency: 3 (1.5-3) Contraction duration: 60 Contraction pattern: Regular Contraction phase: Resting Status status: Category ll Comments: Reassured by moderate variability. Assessment and Plan Comments: Discussed cervical exam. Pt with temp of 100.6F. Plan for Ampicillin, Gentamicin, and Tylenol. Will begin pushing. Dr. Mcbride updated.
[2023-05-30] MEDS: ACETAMINOPHEN 500 MG TABLET 1000 MG PO (13:15)
[2023-05-30] MEDS: AMPICILLIN 2 GM/NS 100 ML 2 GM/100 ML BAG IVPB (13:17)
--- NOTE | 2023-05-30 13:18 | PM.OBPRVD ---
OB - Delivery Note Procedure Delivery date: 05/30/23 Intrapartal Events: Chorioamnionitis Delivery augmentation: Rupture of Membranes Delivery monitor: External FHT and External Uterine Anesthesia type: Epidural [place] Baby Weeks of gestation at delivery: 39 presentation: vertex
--- NOTE | 2023-05-30 13:19 | P.DS_ITS ---
DS: Admitting Diagnosis Admitting Diagnosis 27 y.o. at 39 weeks 4 days SROM at term O+/RI/NR/Hep B neg/HCV neg/HIV neg/GBS neg Hx Anxiety Hx R oophorectomy 2021 DS: Discharge Diagnosis Discharge Diagnosis (1) Mother currently breast-feeding: Code(s): Z39.1 - Encounter for care and examination of lactating mother Status: Acute OB - DS: Summary OB Procedures : Ultrasound Status at Discharge Functional status at discharge: independent ambulation Overall status at discharge: patient is progressing back to baseline Time Spent with Patient Time attestation: Total time spent providing and/or coordinating discharge services: DS: Data Data Completed and Pending Labs on day of discharge: Labs from last 24 hours 05/30/23 01:58 WBC 8.7 RBC 3.49 L Hgb 10.9 L D Hct 32.7 L MCV 93.7 MCH 31.2 MCHC 33.3 RDW 14.2 Plt Count 164 MPV 12.0 H Immature Gran % (Auto) 0.8 H Neut % (Auto) 67.8 Lymph % (Auto) 24.5 [place] % (Auto) 5.8 Eos % (Auto) 0.9 Baso % (Auto) 0.2 Lymph # (Auto) 2.12 [place] # (Auto) 0.5 Eos # (Auto) 0.1 Baso # (Auto) 0.0 Abs Immat Gran (auto) 0.07 H Absolute Neuts (auto) 5.9 Absolute Nucleated RBC 0.0 Nucleated RBC % 0.0 % Immature Plt Fraction 12.0 H RPR Pending Blood Type O Positive Antibody Screen Negative Discharge Plan Discharge Attending physician on discharge: Heather Mcbride Discharging Clinician: Eloisa Michael Patient Disposition: Home, Self-Care Activity: may shower Diet: as tolerated Wound Care Instructions: follow printed instructions Discharge Instructions: Continue taking your vitamin and any other supplements as previously directed (Examples: Iron, Vitamin D). You may take Tylenol 1000mg over the counter every 6 hours as needed for pain. Do not exceed 4000mg of Tylenol daily. You may continue using tucks pads and dermoplast spray if needed for a few more days. Patient Instructions: Antibiotic Form Stand Alone Forms: General Discharge Information Follow-up/Referrals: Eloisa Michael, KAT[facility] [Primary Care Provider] - (6 week exam) Discharge Medications: No Action ergocalciferol (vitamin D2) [Vitamin D2] 1,250 mcg (50,000 unit) Capsule 1,250 mcg PO WEEKLY #2 Tablet 1 tablet PO DAILY Date of admission: 05/30/23 01:00 Primary Care Provider: Eloisa Michael Admitting Provider: Heather Mcbride Attending physician on admission: Heather Mcbride Condition: Stable
[2023-05-30] MEDS: GENTAMICIN SULFATE INJ 405 MG in DEXTROSE 5% 100 ML 100 MG IVPB (13:42)
--- NOTE | 2023-05-30 16:05 | PM.OBPNLAB ---
Pain Control Date/time seen: 05/30/23 16:05 Pain control: epidural Pelvic Exam Dilation (cm): 10 Effacement (%): 100 station: +2 Amniotic membrane status: Ruptured Contractions Monitor mode: External Contraction frequency: 2 (1.5-3) Contraction pattern: Regular Contraction phase: Resting Status status: Category ll Assessment and Plan Comments: CNM at bedside for aprox 3 hours. Pt pushing with contractions. Very good maternal effort. Some capput present. Assisted pt into multiple positions during that time for pushing. FHTs overall cat 2 with some variable decelerations. Reassured by moderate variability. Antibiotics infused for chorioamnionitis. Dr. Mcbride updated on pt progress. Care relinquished to MD at this time.
--- NOTE | 2023-05-30 16:59 | PM.OBPRVD ---
OB - Delivery Note Procedure Delivery date: 05/30/23 Procedure: Induction method: Per Pitocin Protocol Delivery monitor: External FHT and External Uterine Route of delivery: Episiotomy description: None Laceration Description: Perineal - 2nd Degree Delivery repair: vicryl (3-0) Specimen: No Quantitative Blood Loss (ml): 250 Anesthesia type: Local (for repair) Disposition: Floor Baby Date of : 05/30/23 Weeks of gestation at delivery: 39 gender: Female presentation: vertex position: Right Occiput Anterior Placenta delivery description: Spontaneous Cord Vessel Description: 3 Vessels, Nuchal Cord (x 1 delivered through) and Delayed Cord Clamping score one minute: 8 score five minutes: 9
--- NOTE | 2023-05-30 17:01 | PM.OBDSVD ---
DS: Admitting Diagnosis Discharge Date 06/01/23 Admitting Diagnosis IUP 39 4/7 wks SROM DS: Discharge Diagnosis Discharge Diagnosis (1) (normal spontaneous vaginal delivery): Code(s): O80 - Encounter for full-term uncomplicated delivery Status: Acute OB - DS: Summary OB Procedures : Ultrasound OB Procedures Intrapartum: Spontaneous Vag Delivery OB Procedures: : None Peripartum Data Delivery Method: Natural Vaginal Laceration Description: Perineal - 2nd Degree complications: none Status at Discharge Functional status at discharge: independent ambulation Overall status at discharge: patient is progressing back to baseline Time Spent with Patient Time attestation: Total time spent providing and/or coordinating discharge services: DS: Data Data Completed and Pending Labs on day of discharge: Labs from last 24 hours 05/30/23 01:58 WBC 8.7 RBC 3.49 L Hgb 10.9 L D Hct 32.7 L MCV 93.7 MCH 31.2 MCHC 33.3 RDW 14.2 Plt Count 164 MPV 12.0 H Immature Gran % (Auto) 0.8 H Neut % (Auto) 67.8 Lymph % (Auto) 24.5 [place] % (Auto) 5.8 Eos % (Auto) 0.9 Baso % (Auto) 0.2 Lymph # (Auto) 2.12 [place] # (Auto) 0.5 Eos # (Auto) 0.1 Baso # (Auto) 0.0 Abs Immat Gran (auto) 0.07 H Absolute Neuts (auto) 5.9 Absolute Nucleated RBC 0.0 Nucleated RBC % 0.0 % Immature Plt Fraction 12.0 H RPR Pending Blood Type O Positive Antibody Screen Negative Discharge Plan Discharge Attending physician on discharge: Heather Mcbride Discharging Clinician: Delio Musa Anticipated Discharge Date/Time: 06/01/23 17:02 Patient Disposition: Home, Self-Care Activity: may shower Diet: regular Wound Care Instructions: follow printed instructions Discharge Instructions: Education: Mom and Baby Guide Given to: Mother Follow-Up: Call your delivering provider's office for an appointment to be seen in: 6 Weeks Mom and baby should come to the [facility] for the follow-up appointment. Appointment Date/Time: June 03, 2023 at 3:30 pm What to expect at your follow-up visit: Blood Pressure Check Physical Assessment Call [phone] if you are unable to keep your appointment time. BREAST CARE: * Wear a snug supportive bra. * For engorgement discomfort: Breast Feeding: * Apply warm moist washcloths * Express milk as needed to relieve engorgement * Wear loose clothing Bottle Feeding: * May apply ice packs * For sore nipples: * Identify correct latch-on * Apply warm moist washcloths before and after nursing * Air dry nipples after nursing * May apply Lansinoh cream to nipples EPISIOTOMY/PERINEAL CARE: * Until bleeding stops, use your delmer bottle after urinating * Change your pad frequently throughout the day * You may take sitz baths several times a day (fill your bathtub with warm water and soak for 20 minutes.) Do NOT bathe in the water * No tub baths until seen by your physician - You may shower ACTIVITY: * Rest as much as possible. * Do not exercise or lift anything heavier than your baby (such as laundry or other children.) * Avoid stairs or driving as much as possible. * Do not put anything into the vagina. No douching, tampons, or sexual activity until seen by physician. NOTIFY PHYSICIAN IF YOU HAVE ANY QUESTIONS OR IF ANY OF THE FOLLOWING SYMPTOMS OCCUR: * If your vaginal area becomes red, swollen, or more painful than what you have experienced in the hospital. * If your vaginal bleeding becomes foul smelling. * If your vaginal bleeding becomes more heavy than a period or if your bleeding changes from brownish-red/ period color it is now to bright red. However, you may pass an occasional walnut-sized clot once or twice for the first week . * If you experience a sharp, shooting pain in your calves. * If
[2023-05-30] MEDS: OXYTOCIN 30 UNITS/NS 500 ML 30 UNITS/500 ML BAG 125 UNITS IV CONT (17:19)
[2023-05-31 04:15] VITALS: BP 121/76; PULSE 114; RESP 18; TEMP 36.9; O2SAT 100
[2023-05-31 05:14] LABS: Hematocrit 30.7 % (37.0-47.0); Hemoglobin 10.2 g/dL (12.0-15.0)
--- NOTE | 2023-05-31 07:26 | WPDANLDPN2 ---
Anes-Prog Note L&D Date/Time: 05/31/23 07:26 Comfortable throughout: labor and delivery Neuraxial method: epidural Epidural/Spinal procedure site: clean & non-tender Neuro status: Neuro function grossly intact. Cardiovascular status: normal Respiratory status: normal Airway patency: baseline Mental status: baseline Post-Op hydration status: normal Vital Signs: Last Vital Signs Temp 36.9 C 05/31/23 04:15 Pulse 114 H 05/31/23 04:15 Resp 18 05/31/23 04:15 BP 121/76 05/31/23 04:15 Pulse Ox 100 05/31/23 04:15 O2 Del Method Room Air 05/30/23 20:01 Pain score (VAS): 1/10 I/O: Intake & Output 05/30/23 05/30/23 05/31/23 15:59 23:59 07:59 Intake Total 1000 Output Total 10 Balance 1000 -10 Post-procedural complaints: none Patient feedback: Patient satisfied with anesthetic care.
[2023-05-31 07:50] VITALS: BP 110/66; PULSE 100; RESP 18; TEMP 37.2; O2SAT 99
--- NOTE | 2023-05-31 08:05 | P.PNOB_ITS ---
OB - PN: Subj Subjective Date/time seen: 05/31/23 0740 Interval history: Doing well. Urinating without difficulty. Denies passing any large clots. Denies dizziness with ambulating. Tolerating po food and fluids. Bonding with infant. Partner present and supportive. having difficulty latching with nursing. Patient comments: no complaints and pain well controlled [place] baby status: nursing well feeding status: exclusively breast feeding OB - PN: Obj Data Labs 05/31/23 04:15 Labs: Laboratory Results - last 24 hr 05/31/23 04:15 Hgb 10.2 L Hct 30.7 L OB - PN A/P Assessment and Plan (1) (normal spontaneous vaginal delivery): Code(s): O80 - Encounter for full-term uncomplicated delivery Status: Acute (2) Mother currently breast-feeding: Code(s): Z39.1 - Encounter for care and examination of lactating mother Status: Acute (3) Anxiety: Code(s): F41.9 - Anxiety disorder, unspecified Status: Acute Plan day: 1 Plan: routine care Time Spent With Patient Time: Total time spent is greater than 50% in coordination of care (as documented) at patient's floor/unit and/or counseling patient: Review of Systems Review of Systems: All systems reviewed & are unremarkable except as noted in HPI and below Exam 2 Narrative: Alert and oriented. Mood is pleasant and cooperative. Perineum with minimal edema. Fundus firm and below umbilicus. Const: General: cooperative, healthy appearing, no acute distress and alert Orientation/consciousness: patient oriented x3 Limitations: no limitations Resp: Effort & Inspection: normal respiratory effort and able to speak in complete sentences Auscultation: clear to auscultation bilaterally Cardio: Rate: regular rate GI: Inspection: normal to inspection Auscultation: normal bowel sounds : General: Yes bladder normal to palpation Speculum Exam - Vagina: vaginal bleeding Bimanual exam- vagina & uterus: bladder normal to palpation OB/external & speculum: vaginal bleeding Other: Fundus firm and below U Skin: General skin exam: normal color and no rashes or lesions noted Neuro: General: patient oriented x3 and moves all extremities Cognition (Neuro): normal cognition Extrem: General: normal to inspection and no calf tenderness Psych: Appearance: grossly normal Mental Status: mental status grossly normal Affect: normal affect Thought process: Normal thought process pr esent
[2023-05-31] MEDS: MULTIVIT/MIN/PREN/FOL AC/IRON TABLET 1 TAB PO (08:14)
[2023-05-31] MEDS: IBUPROFEN 600 MG TABLET PO ×2 (08:14→19:40)
[2023-05-31] MEDS: DOCUSATE SODIUM 100 MG CAPSULE PO (08:15)
[2023-05-31 11:35] VITALS: BP 116/77; PULSE 90; RESP 16; TEMP 36.9; O2SAT 99
--- NOTE | 2023-05-31 13:03 | PC.NURSE ---
[id number] Introductions were made, then consulted with patient to assess needs related to . Mother led the conversation with her?plans to feed?her infant, the?experience so far and is receptive to initiating a consult. Encouraged understanding of the benefits of skin to skin (demonstrating unwrapping and placing upright on her chest), stimulating with massage touch, changing positions to encourage wakefulness, how to watch for early feeding cues, responsive feeding, feeding on demand (aiming for 8-12 times in 24 hours, about every 2-3 hours), milk production, building/maintaining a milk supply, duration of feeding, signs of adequate intake/output and how to record on the feeding sheet. Mother works with her well with encouragement. Infant comes to the left breast with mother using the cross cradle positioning. Reviewed positioning and ear, shoulder, hip alignment, supporting the breast to facilitate a deep latch with the sandwich U-hold, asymmetrical latch (off-center), leading with the chin with a big, open, wide gape and body close to mother. Infant approaches with wide open, however, will not suckle the breast. placed skin to skin. Mother learned and practiced the skill of hand expression. Mother has colostrum in large droplet that are easily expressed and finger fed to the infant. Infant remains reluctant to effectively breastfeed so, infant is placed upright on mothers chest [id number]. [id number] 1025 Purposefully rounded to assess infant's readiness to breastfeed. Once infant was stimulated for wakefulness and feeding cues were visualized, then latched optimally to the right breast in football position. Education given to mother of how to visualize suck/swallow ratios and watch and listen for drinking at the breast. was able to maintain latch without discomfort to mother. Nipple care reviewed with optimal latch and good positioning. Reviewed good handwashing when or touching the breast/nipples to prevent infection, preventing and managing engorgement. Resources used to facilitate learning were used with the tool, mom and baby guide. Mother voiced understanding of skin to skin, stimulating with massage touch, responsive feedings, hand expressed colostrum, talking to to encourage if it has been 2 -2.5 hours since the start of the last , to call if infant does not latch, or if there is discomfort with . Resources provided for inpatient/outpatient with business card, feeding sheet and the mom/baby guide. Resources provided for inpatient and outpatient services with the feeding sheet, mom/baby guide and name written on the white board. Mother voiced understanding of information and will call if there is a request for assistance. Reported to the primary RN.
[2023-05-31 14:04] LABS: Rapid Plasma Reagin Non-Reactive (NonReactive)
[2023-06-01] MEDS: IBUPROFEN 600 MG TABLET PO (04:52)
--- NOTE | 2023-06-01 07:22 | PM.OBPNVD ---
OB - PN: Subj Subjective Date/time seen: 06/01/23 07:22 Interval history: Doing well. Urinating without difficulty. Denies passing any large clots. Denies dizziness with ambulating. Tolerating po food and fluids. Bonding with . Partner present and supportive. Infant having difficulty latching with nursing. Patient comments: pain well controlled, tolerating diet and other (Decreasing lochia.) baby status: doing well and nursing well OB - PN: Obj Data Labs 05/31/23 04:15 Labs: Laboratory Results - last 24 hr 05/30/23 01:58 RPR Non-reactive OB - PN A/P Plan day: 2 Plan: discharge home and other Comments: Patient doing well. Follow up 4-6 weeks. Discharge instructions provided. Time Spent With Patient Time: Total time spent is greater than 50% in coordination of care (as documented) at patient's floor/unit and/or counseling patient: Time with patient: less than 15 minutes Exam Psych: Affect: normal affect Other: Abd: fundus firm below umbilicus, nontender Ext: nontender
[2023-06-01 08:15] VITALS: BP 120/75; PULSE 87; RESP 14; TEMP 36.5
[2023-06-01] MEDS: DOCUSATE SODIUM 100 MG CAPSULE PO (08:55)
[2023-06-01] MEDS: MULTIVIT/MIN/PREN/FOL AC/IRON TABLET 1 TAB PO (08:55)
[2023-06-01] MEDS: WITCH HAZEL 40 PADS 1 PAD TOPICAL (08:56)
[2023-06-01] MEDS: BENZOCAINE 20% AER SPR (*SP) 56 GM CAN 1 SPRAY TOPICAL (08:56)
[2023-06-03 15:45] VITALS: BP 104/69; PULSE 77; RESP 18; TEMP 37.2; O2SAT 99
== END 2023-06-01 14:40 | disposition home or self-care (01) | DRG 807 ==
LOC: ANHLDR 17:03 → ANHOB2 19:43
PROVIDERS: Admitting Provider Obstetrics & Gynecology Gynecology; PCP Advanced Practice Midwife; Visit Provider Obstetrics & Gynecology Gynecology
DX: O75.2 Pyrexia during labor, not elsewhere classified (principal); Z37.0 Single live birth; O70.1 Second degree perineal laceration during delivery; O69.81X0 Labor and delivery complicated by cord around neck, without compression, not applicable or unspecified; Z3A.39 39 weeks gestation of pregnancy
CPT/HCPCS: 36415; 85014; 85018; 85025; 85055; 86592; 86850; 86900; 86901; A9270; J0290; J1580; J2590; J2795; J7120

== ENCOUNTER 2024-01-07 09:51 | Emergency (ER) | payer BC, SELFPAY ==
[2024-01-07 09:56] VITALS: BP 122/77; PULSE 76; RESP 16; TEMP 36.7; O2SAT 100
--- NOTE | 2024-01-07 10:02 | ED.GENADULT ---
HPI - General Adult General Chief complaint: Urogenital-Female Stated complaint: Right Side Breast Pain Source: patient Mode of arrival: ambulatory Limitations: no limitations History of Present Illness HPI narrative: Patient is a 28-year-old female who presents with redness to right breast. Patient is currently . Patient states it started 1 week ago as what looked like a zit. Patient popped and had white pus. It has never gone away. Patient states this morning while nursing it was painful and there was blood present. Denies any other drainage, fever, chills, nausea, vomiting, diarrhea, red streaking. Related Data Home Medications Medication Instructions Recorded Confirmed ergocalciferol (vitamin D2) 1,250 1,250 mcg PO WEEKLY 05/03/23 01/07/24 mcg (50,000 unit) capsule (Vitamin D2) prenat.vits,demario,soj-exoh-iwmky 1 tablet PO DAILY 05/03/23 01/07/24 Allergies Allergy/AdvReac Type Severity Reaction Status Date / Time No Known Allergies Allergy Verified 01/07/24 09:57 Review of Systems Review of Systems: All systems reviewed & are unremarkable except as noted in HPI and below Constitutional: Constitutional: Denies body ache(s), Denies chills, Denies fatigue, Denies fever(s), Denies headache(s), Denies malaise and Denies weakness Eyes: Eyes: Denies blurry vision, Denies irritation and Denies loss of vision ENT: Denies otalgia, Denies headache(s), Denies nasal discharge, Denies sinus pain and Denies sore throat Cardiovascular: Cardiovascular: Denies chest pain, Denies irregular heart rhythm and Denies dyspnea Respiratory: Respiratory: Denies dyspnea Gastrointestinal: Gastrointestinal: Denies abdominal pain, Denies melena, Denies hematochezia, Denies diarrhea, Denies nausea and Denies vomiting Musculoskeletal: Musculoskeletal: Denies back pain, Denies myalgias and Denies arthralgias Integumentary/Breasts: Skin/Breast: Denies pruritus, Denies rash and Reports wounds Neurologic: Denies headache(s), Denies loss of vision and Denies weakness Psychiatric: Psychiatric: Reports no additional psychiatric complaints Endocrine: Endocrine: Denies fatigue PMFSH Past Medical History Medical History Anxiety Family History Family History Grandparent Depression Social History Social History Smoking status: Never smoker Tobacco type: cigarettes Second hand tobacco smoke exposure: Yes Alcohol intake: never Substance use: former Substance use type: does not use Lack of Transportation: No Lack of Food: Never True Current Housing: I Have Housing Concerned About Future Housing: No Difficulty Paying Gas/Electric Bills: No Difficulty Paying for Meds: No Currently Unemployed: No Education: High School Diploma/GED Difficulty w/ Childcare or Family Care: No Living arrangements: with family Occupation/Education: occupation Gender identity (if verbalized by the patient): Female Sexual Orientation (if Verbalized by the Patient): Straight or Heterosexual Spiritual care concerns: No Agree to blood products: Yes Comments At time of signature, agree with nursing past medical, surgical, social and family history. There is no relevant family history pertinent to the presenting complaint. Exam Const: General: cooperative, healthy appearing, comfortable, no acute distress and well nourished Nutritional Appearance: well nourished Orientation/consciousness: patient oriented x3 Limitations: no limitations HENMT: Head: normal to inspection, normocephalic and atraumatic Ears: hearing grossly normal bilaterally and external ears normal Face/Nose/Sinus: Normal external nose present, normal facial exam and face symmetric Face and sinus: normal facial exam and face symmetric Mouth: Yes lip normal Eyes: General
== END 2024-01-07 10:20 | disposition home or self-care (01) ==
PROVIDERS: Emergency Provider Nurse Practitioner Family; PCP Family Medicine Adolescent Medicine
DX: O91.22 Nonpurulent mastitis associated with the puerperium (principal)
CPT/HCPCS: 99213; G0463